=== PATIENT | male | born 1985 | race African-American/Black ===

== ENCOUNTER 2017-07-31 07:06 | Emergency (ER) | payer OTHER ==
[2017-07-31 07:31] VITALS: BP 115/77; PULSE 114; TEMP 98.4; BMI 24.4
--- NOTE | 2017-07-31 07:52 | PDOC ---
History of Present Illness <Gabe Guevara - Last Filed: 07/31/17 09:32> - History of Present Illness Initial Comments: 07/31/17 07:53 32yo man, active smoker, with PMH of asthma (no intubations) and prior R shoulder dislocation who presents with complaints of R shoulder thoracic back pain for the past several months and intermittent sob with mild cough for the past week. He denies any recent trauma to back or shoulders. Denies fever, chills, n/v, chest pain. Denies calf tenderness, chest pain, chest pressure. Patient states he is allergic to Ibuprofen, which causes "everything to go wrong ", and requesting opiate level pain control. No prior surgeries. <Marta Meraz - Last Filed: 07/31/17 09:43> - General Chief Complaint: Back Pain Stated Complaint: BACK PAIN Time Seen by Provider: 07/31/17 07:36 Past History <Gabe Guevara - Last Filed: 07/31/17 09:32> - Travel Traveled outside of the country in the last 30 days: No Close contact w/someone who was outside of country & ill: No - Past Medical History Asthma: Yes COPD: No - Suicide/Smoking/Psychosocial Hx Smoking History: Current some day smoker Have you smoked in the past 12 months: Yes Information on smoking cessation initiated: No Drug/Substance Use Hx: Yes (MARIJUANA) Substance Use Type: Marijuana <Marta Meraz - Last Filed: 07/31/17 09:43> - Past Medical History Allergies/Adverse Reactions: Allergies Allergy/AdvReac Type Severity Reaction Status Date / Time No Known Allergies Allergy Verified 07/31/17 07:28 Home Medications: Ambulatory Orders Tramadol HCl 50 mg PO BID PRN #5 tablet MDD 2 07/31/17 Review of Systems - Review of Systems Respiratory: Yes: Shortness of Breath, Productive cough Musculoskeletal: Yes: Back Pain All Other Systems: Reviewed and Negative <Marta Meraz - Last Filed: 07/31/17 09:43> *Physical Exam - Vital Signs Last Vital Signs Temp Pulse Resp BP Pulse Ox 98.4 F 114 H 15 115/77 99 07/31/17 07:28 07/31/17 07:28 07/31/17 07:28 07/31/17 07:28 07/31/17 07:28 <Gabe Guevara - Last Filed: 07/31/17 09:32> - Vital Signs Last Vital Signs Temp Pulse Resp BP Pulse Ox 98.4 F 114 H 15 115/77 99 07/31/17 07:28 07/31/17 07:28 07/31/17 07:28 07/31/17 07:28 07/31/17 07:28 - Physical Exam General Appearance: Yes: Nourished, Appropriately Dressed HEENT: positive: EOMI, KALEB, Normal ENT Inspection Neck: positive: Supple Respiratory/Chest: positive: Lungs Clear, Normal Breath Sounds. negative: Accessory Muscle Use Cardiovascular: positive: Regular Rhythm, Regular Rate, S1, S2 Musculoskeletal: positive: Normal Inspection, Vertebral Tenderness Extremity: positive: Normal Inspection Integumentary: negative: Ecchymosis, Bruising Neurologic: positive: Fully Oriented, Alert, Motor Strength 5/5, Other ( spontaneous movement of all 4 extremities, gait steady) <Marta Meraz - Last Filed: 07/31/17 09:43> Heart Score/ECG Review - ECG Impressions Normal ECG: Yes Comment:: 07/31/17 08:49 NSR, rate 79, normal axis and intervals (QTc 417), no acute ischemic changes <Marta Meraz - Last Filed: 07/31/17 09:43> ED Treatment Course - Medications Given in the ED: ED Medications Discontinued Medications Generic Name Dose Route Start Last Admin Trade Name Freq PRN Reason Stop Dose Admin Acetaminophen 650 mg 07/31/17 08:03 07/31/17 08:16 Tylenol - PO 07/31/17 08:04 650 mg ONCE ONE Administration <Gabe Guevara - Last Filed: 07/31/17 09:32> Medical Decision Making - Medical Decision Making 07/31/17 08:18 32yo man who is a current smoker, h/o asthma and who presents with acute on chronic R shoulder and thoracic back pain and c/o intermittent sob and cough for the past week. Physical exam is notable for difficult to isolate non-focal tenderness in thoracic region with no bruising or deformities observed. Patient is requesting opiates for pain control. Will r/o PNA, pneumothorax. Likely etiology is MSK. Will do PA/Lateral CXR and EKG. Will give Tylenol for pain, and reassess. 07/31/17 09:25 CXR is reassuring; there is no e/o pneumothorax, focal consolidation, or pleural effusion; no e/o compression fractures are appreciated. EKG is normal. Although triage HR was 114, repeat HR was 79bpm. Patient is satting well on RA, no cough appreciated during ED stay. All vital signs are stable, pt is well appearing, and is stable for discharge home. All imaging and ancillary studies were discussed with the patient. He was instructed to follow-up with Dr. Bullock within 1 week. A prescription for 5 tablets of Tramadol was sent to his pharmacy with instructions to take for severe pain otherwise use Tylenol. Patient is in agreement with plan. <Marta Meraz - Last Filed: 07/31/17 09:43> *DC/Admit/Observation/Transfer <Gabe Guevara - Last Filed: 07/31/17 09:32> - Discharge Dispostion Admit: No <Marta Meraz - Last Filed: 07/31/17 09:43> Diagnosis at time of Disposition: Back pain - Discharge Dispostion Disposition: HOME Condition at time of disposition: Stable - Prescriptions Prescriptions: Tramadol HCl 50 mg PO BID PRN #5 tablet MDD 2 PRN Reason: Pain - Referrals Referrals: Tucker Bullock MD [Staff Physician] - - Patient Instructions Printed Discharge Instructions: DI for Shortness of Breath, DI for Thoracic Back Pain Additional Instructions: Please make an appointment to see Dr. Bullock, a primary care physician within the next 1 week for further evaluation of your back pain and asthma control. Avoid activities that worsen your pain. If you have severe pain, you can take 1 tablet of Tramadol, otherwise use Tylenol for pain control. Please return to the Emergency Department if you have worsening symptoms, including numbness and tingling, fever or chills, vomiting, or new or worsening symptoms. - Post Discharge Activity
[2017-07-31] MEDS ORDERED: ACETAMINOPHEN 325 MG TABLET (FP) PO ONE (08:03)
[2017-07-31] MEDS ORDERED: ACETAMINOPHEN 325 MG TABLET (FP) ONE (08:15)
--- NOTE | 2017-07-31 08:38 | PDOC ---
Attending Attestation - Resident Resident Name: Marta Meraz - ED Attending Attestation I have performed the following: I have examined & evaluated the patient, The case was reviewed & discussed with the resident, I agree w/resident's findings & plan, Exceptions are as noted - HPI HPI: 07/31/17 08:33 32-year-old male with history of asthma, active smoker presents with acute on chronic right thoracic/upper back pain. No history of trauma, no fevers or chills, over the last week has had nasal congestion with slight cough. No PE risk factors, no symptoms of DVT, denies any associated rash or neuro deficits. Has not seen any providers for this in the past, resents today for evaluation. Of note, reports allergy to nsaids and is requesting strong pain medicine. - Physicial Exam PE: 07/31/17 08:36 Vital signs normal, heart rate notably 114 at triage but normal at 84 on my exam. Patient asleep in stretcher lying flat Speaking full sentences, no active cough during the history or physical, in no acute distress Oropharynx clear, lungs are clear without wheezing or focally decreased breath sounds, symmetric chest rise Heart is regular with normal rate and no murmurs Difficult to isolate reproducible discomfort to palpation across the back without any swelling or deformity or bruising No leg edema or calf tenderness - Medical Decision Making 07/31/17 08:36 Patient seen and evaluated with the resident. I agree with the overall evaluation, assessment, and management with the following summary of visit: 32-year-old male with atraumatic acute on chronic (on the order of months) right thoracic discomfort, history of asthma with recent URI. Rule out pneumonia , rule out pneumothorax, otherwise presentation is most consistent with muscular skeletal etiology. Patient's immediate request for opiate level pain medication is concerning, especially since he never had any pain regimen for this in the past. That said, will rule any acute pathology. Chest x-ray, EKG Tylenol for pain No further emergent workup is indicated, can refer to outpatient care if above is within normal limits. Heart Score/ECG Review #1 ECG reviewed & interpreted by me at: 08:20 General ECG Interpretation: Sinus Rhythm, Normal Rate (79), Normal Intervals ( qtc 417), No acute ischemic changes
--- NOTE | 2017-07-31 14:36 | EKG ---
Test Reason : Blood Pressure : / mmHG Vent. Rate : 079 BPM Atrial Rate : 079 BPM P-R Int : 154 ms QRS Dur : 102 ms QT Int : 364 ms P-R-T Axes : 071 081 046 degrees QTc Int : 417 ms NORMAL SINUS RHYTHM WITH SINUS ARRHYTHMIA NORMAL ECG WHEN COMPARED WITH ECG OF 23-OCT-2003 10:04, NO SIGNIFICANT CHANGE WAS FOUND Confirmed by LARRY CRAWFORD MD ([id number]) on 07/31/2017 2:36:16 PM Referred By: Confirmed By:LARRY CRAWFORD MD
== END 2017-07-31 09:53 | disposition home or self-care (01) ==
LOC: JER 07:06
DX: M54.6 Pain in thoracic spine (principal); F17.210 Nicotine dependence, cigarettes, uncomplicated; J45.909 Unspecified asthma, uncomplicated
CPT/HCPCS: 71020-TC; 93005; 93010; 99282-25

== ENCOUNTER 2018-04-11 02:49 | Inpatient (IN) | payer OTHER ==
[2018-04-11] MEDS ORDERED: morphine CARPU-JECT 4 MG/1 ML DISP.SYRIN IVPUSH ONE (03:04)
[2018-04-11] MEDS ORDERED: morphine SULFATE 4 MG/ML VIAL ONE ×2 (03:11→03:27)
[2018-04-11] MEDS ORDERED: morphine CARPU-JECT 2 MG/1 ML DISP.SYRIN IVPUSH ONE (03:25)
[2018-04-11] MEDS ORDERED: PIPERACILLIN/TAZOB 3.375 GM 3.375 GM in DEXTROSE 5%-WATER - 50 ML IVPB ONE (03:26)
[2018-04-11] MEDS ORDERED: VANCOMYCIN 1,000 MG in DEXTROSE 5%-WATER - 250 ML IVPB ONE (03:26)
[2018-04-11] MEDS ORDERED: MORPHINE SULFATE 2 MG/ML VIAL ONE (03:27)
[2018-04-11 03:29] LABS: HEMATOCRIT 42.9 % (35.4-49); HEMOGLOBIN 14.4 GM/dL (11.7-16.9); MCH 29.1 pg (25.7-33.7); MCHC 33.6 g/dl (32.0-35.9); MEAN CELL VOLUME 86.5 fl (80-96); MEAN PLT VOLUME 7.2 fl (7.5-11.1); PLATELET COUNT 312 K/MM3 (134-434); RBC 4.96 M/mm3 (4.00-5.60); WHITE BLOOD COUNT 16.9 K/mm3 (4.0-10.0)
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
[2018-04-11 03:41] LABS: INR 1.12 (0.83-1.09); PROTHROMBIN TIME (PATIENT) 12.7 SEC (9.7-13.0)
[2018-04-11 03:49] LABS: ALBUMIN 3.8 g/dl (3.4-5.0); ALK PHOS 91 U/L (45-117); ANION GAP 6 MMOL/L (8-16); BILIRUBIN,TOTAL 0.3 mg/dL (0.2-1.0); BLOOD UREA NITROGEN 12 mg/dL (7-18); CALCIUM 9.2 mg/dL (8.5-10.1); CHLORIDE 106 mmol/L (98-107); CO2 31 mmol/L (21-32); GLUCOSE,RANDOM 109 mg/dL (74-106); POTASSIUM 4.1 mmol/L (3.5-5.1); SGOT/AST 43 U/L (15-37); SGPT/ALT 37 U/L (12-78); SODIUM 143 mmol/L (136-145); TOT PROT 7.5 g/dl (6.4-8.2)
[2018-04-11] MEDS ORDERED: KETAMINE HCL 200 MG/20 ML VIAL IVPUSH ONE (04:05)
[2018-04-11] MEDS ORDERED: KETAMINE HCL 200 MG/20 ML VIAL ONE (04:11)
[2018-04-11] MEDS ORDERED: LORazepam 2 MG/ML SDV VIAL ONE ×2 (04:22→04:28)
[2018-04-11 04:52] VITALS: BMI 23.4
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
[2018-04-11] MEDS ORDERED: CEFAZOLIN 1 GM in DEXTROSE 5%-WATER - 50 ML IVPB ONE (06:18)
[2018-04-11] MEDS ORDERED: ceFAZolin SODIUM 1 GM VIAL ONE ×2 (06:21→13:24)
--- NOTE | 2018-04-11 07:26 | PDOC ---
History of Present Illness - General Chief Complaint: Bone Injury Stated Complaint: FALL Time Seen by Provider: 04/11/18 03:03 Past History - Past Medical History Allergies/Adverse Reactions: Allergies Allergy/AdvReac Type Severity Reaction Status Date / Time No Known Allergies Allergy Verified 04/11/18 05:34 Home Medications: Ambulatory Orders NK [No Known Home Medication] 04/11/18 Asthma: Yes COPD: No Other medical history: unknown pmhx besides substance abuse - Suicide/Smoking/Psychosocial Hx Smoking History: Current every day smoker Have you smoked in the past 12 months: Yes Number of Cigarettes Smoked Daily: 20 Information on smoking cessation initiated: No Hx Alcohol Use: Yes Drug/Substance Use Hx: Yes Substance Use Type: Marijuana *Physical Exam - Vital Signs Last Vital Signs Temp Pulse Resp BP Pulse Ox 98.5 F 86 18 137/103 100 04/11/18 03:30 04/11/18 04:52 04/11/18 04:18 04/11/18 04:18 04/11/18 04:52 ED Treatment Course - LABORATORY CBC & Chemistry Diagram: 04/11/18 03:19 04/11/18 03:19 - ADDITIONAL ORDERS Additional order review: Laboratory Results 04/11/18 04/11/18 04/11/18 03:19 03:19 03:19 PT with INR 12.70 INR 1.12 H Sodium 143 Potassium 4.1 Chloride 106 Carbon Dioxide 31 Anion Gap 6 L BUN 12 Creatinine 1.0 Creat Clearance w eGFR > 60 Random Glucose 109 H Calcium 9.2 Total Bilirubin 0.3 AST 43 H ALT 37 Alkaline Phosphatase 91 Total Protein 7.5 Albumin 3.8 Salicylates < 4.0 Alcohol, Quantitative < 5.0 04/11/18 03:19 RBC 4.96 MCV 86.5 MCHC 33.6 RDW 15.0 MPV 7.2 L - Medications Given in the ED: ED Medications Discontinued Medications Generic Name Dose Route Start Last Admin Trade Name Freq PRN Reason Stop Dose Admin Vancomycin HCl 1,000 mg/ 250 mls @ 166.667 mls/hr 04/11/18 03:26 04/11/18 03: 35 Dextrose IVPB 04/11/18 04:55 Not Given ONCE ONE Protocol Piperacillin Sod/Tazobactam 50 mls @ 100 mls/hr 04/11/18 03:26 04/11/18 03:36 Sod 3.375 gm/ Dextrose IVPB 04/11/18 03:55 Not Given ONCE ONE Protocol Cefazolin Sodium 1 gm/ 50 mls @ 100 mls/hr 04/11/18 06:18 04/11/18 06:20 Dextrose IVPB 04/11/18 06:47 100 mls/hr ONCE ONE Administration Ketamine HCl 100 mg 04/11/18 04:05 04/11/18 04:55 Ketalar - IVPUSH 04/11/18 04:06 100 mg ONCE ONE Administration Lorazepam 4 mg 04/11/18 04:46 04/11/18 04:55 Ativan Injection - IVPUSH 04/11/18 04:47 4 mg ONCE ONE Administration Lorazepam 2 mg 04/11/18 04:47 04/11/18 04:55 Ativan Injection - IVPUSH 04/11/18 04:48 2 mg ONCE ONE Administration Morphine Sulfate 4 mg 04/11/18 03:04 04/11/18 03:35 Morphine Injection - IVPUSH 04/11/18 03:05 4 mg ONCE ONE Administration Morphine Sulfate 6 mg 04/11/18 03:25 04/11/18 03:34 Morphine Injection - IVPUSH 04/11/18 03:26 6 mg ONCE ONE Administration Medical Decision Making - Medical Decision Making 33 year old who apparently used PCP presented with comminuted distal tib and proximal fib fracture. Patient taken to CT. Responsive but somnolent after copious sedatives (100 Ketamine, Ativan 6, and Morphine). Patient evaluated by PA from ortho team and signed out to Medicine team in stable condition. 04/11/18 09:00 *DC/Admit/Observation/Transfer Diagnosis at time of Disposition: Tibia/fibula fracture - Discharge Dispostion Condition at time of disposition: Guarded - Referrals Referrals: Pierre Boateng MD [Primary Care Provider] - - Patient Instructions - Post Discharge Activity
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
[2018-04-11] MEDS ORDERED: MORPHINE SULFATE 2 MG/ML VIAL IVPUSH PRN (12:39)
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
[2018-04-11] MEDS ORDERED: ROCURONIUM BROMIDE 50 MG/5 ML VIAL ONE (12:57)
[2018-04-11] MEDS ORDERED: PROPOFOL 20 ML ONE (12:57)
[2018-04-11] MEDS ORDERED: fentaNYL CITRATE 250 MCG/5 ML VIAL ONE (12:57)
[2018-04-11] MEDS ORDERED: MIDAZOLAM HCL 2 MG/2 ML SINGLE DOSE VIAL ONE (12:57)
[2018-04-11] MEDS ORDERED: SODIUM CHLORIDE 0.9% P/F 10 ML VIAL IJ ONE (13:24)
[2018-04-11] MEDS ORDERED: ceFAZolin SODIUM 1 GM VIAL IVPB ONE (13:26)
[2018-04-11] MEDS ORDERED: ONDANSETRON 4 MG/2 ML VIAL ONE (13:27)
[2018-04-11] MEDS ORDERED: DEXAMETHASONE SOD PHOSPHATE 4 MG/1 ML VIAL ONE (13:27)
[2018-04-11] MEDS ORDERED: KETOROLAC TROMETHAMINE 30 MG/1 ML VIAL ONE (14:31)
[2018-04-11] MEDS ORDERED: NEOSTIGMINE METHYLSULFATE 0.5 MG/ML - 10 ML MDV ONE (14:33)
[2018-04-11] MEDS ORDERED: GLYCOPYRROLATE 0.2 MG/1 ML VIAL ONE (14:33)
--- NOTE | 2018-04-11 15:06 | CONSULT ---
Consult - text type - Consultation Consultation Note: FULL CONSULT DICTATION IMP: LEFT COMMINUTED TIBIAL/FIBULA SHAFT FX PLAN: ---> OR FOR IM NAIL
--- NOTE | 2018-04-11 15:07 | OP ---
Operative Note - Note: Operative Date: 04/11/18 Pre-Operative Diagnosis: COMMINUTED AND DISPLACE LEFT TIB/FIB SHAFT FX Operation: IM VIRI LEFT TIBIA Post-Operative Diagnosis: Same as Pre-op Anesthesia: General Estimated Blood Loss (mls): 50 Operative Report Dictated: Yes
[2018-04-11] MEDS ORDERED: LACTATED RINGERS SOLUTION 1,000 ML IV SCH (15:15)
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
--- NOTE | 2018-04-11 15:42 | OP ---
DATE OF OPERATION: 04/11/2018 PREOPERATIVE DIAGNOSIS: Comminuted, segmental, left distal tibial shaft fracture with high fibular fracture. POSTOPERATIVE DIAGNOSIS: Comminuted, segmental, left distal tibial shaft fracture with high fibular fracture. PROCEDURE: Intramedullary rodding, left tibial fracture. SURGICAL ATTENDING: Ketan Holland MD ANESTHESIA: General endotracheal intubation. POSITION: Supine. CLOSURE: A Chip tibial intramedullary kevin 11 x 375 mm with appropriate interlocks, 0 Vicryl fascia, 2-0 subcutaneous, and dea for the skin. ESTIMATED BLOOD LOSS: Less than 50 mL. COMPLICATIONS: None. CONDITION: Recovery room in stable condition. DESCRIPTION OF OPERATIVE PROCEDURE: Patient was taken to the operating room on April 11, 2018. General anesthesia with endotracheal intubation was administered by the anesthesiologist. IV Kefzol administered prophylactically prior to the case. The patient's left lower extremity was prepped and draped in the usual sterile fashion. First, a 6-cm longitudinal incision just medial to the patellar tendon was incised. Hemostasis achieved with Bovie cautery. Sharp dissection was carried just medial to the tendon to the origination site for the kevin. A guidewire was drilled from this region into the proximal tibia. Proper placement was confirmed in the AP and lateral planes based on the image intensifier. This was over-reamed with a starter reamer. A ball-tip guidewire was then placed down the intramedullary canal, past the fracture, into the distal fragment. Proper placement was confirmed in the AP and lateral planes based on the image intensifier. The guidewire was measured for length, and then, serial reaming was performed over the wire to a 12.5 reamer, which achieved some chatter at the isthmus. An 11 x 375 mm kevin was then malleted down into place, holding the reduction. The rotation was measured by orienting the first web space with the tibial tubercle. The kevin was placed within a centimeter of the ankle joint. Using the outrigger, 2 proximal interlocks were placed, one dynamic and one static. The outrigger was then removed. Free-hand technique was then used to put 2 distal interlocks, one anterior to posterior and one mediolaterally through the distal 2 holes in the kevin. Excellent fixation was obtained with excellent reduction of the fracture. X-rays revealed excellent position of the hardware throughout, with excellent reduction of the fracture as well. The incisions were cleaned with multiple antibiotic irrigation. The fascia was closed in a 0 Vicryl interrupted suture, 2-0 subcutaneous, and dea for skin, as well as for the stab incisions used to lock the kevin. A sterile pressure dressing was applied lightly to the leg. The patient was awakened from anesthesia and transferred to Recovery in stable condition. No complications. Estimated blood loss was less than 50 mL. Nabil [id number]
[2018-04-11] MEDS ORDERED: oxyCODONE HCL 5 MG TABLET PO ONE ×2 (15:45→18:15)
[2018-04-11] MEDS ORDERED: ACETAMINOPHEN 325 MG TABLET (FP) PO ONE ×2 (15:45→18:15)
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
[2018-04-11] MEDS ORDERED: CEFAZOLIN 1 GM/D5W 1 GM/50 ML BAG IVPB SCH (18:00)
[2018-04-11] MEDS: LACTATED RINGERS SOLUTION 1,000 ML IV SCH (18:17)
[2018-04-11] MEDS ORDERED: LORazepam 2 MG/ML SDV VIAL IVPUSH PRN (18:25)
[2018-04-12] MEDS ORDERED: ceFAZolin SODIUM 1 GM VIAL ONE ×2 (01:03→09:20)
[2018-04-12] MEDS ORDERED: DEXTROSE 5%-WATER - 50 ML IVPB ONE ×2 (01:03→09:20)
[2018-04-12] MEDS: morphine SULFATE 4 MG/ML VIAL IVPUSH PRN ×3 (01:25→09:37)
[2018-04-12] MEDS: CEFAZOLIN 1 GM in DEXTROSE 5%-WATER - 50 ML IVPB SCH ×2 (01:26→09:37)
[2018-04-12] MEDS: LACTATED RINGERS SOLUTION 1,000 ML IV SCH (05:38)
[2018-04-12 08:31] LABS: HEMATOCRIT 36.3 % (35.4-49); HEMOGLOBIN 11.8 GM/dL (11.7-16.9); MCHC 32.5 g/dl (32.0-35.9); MEAN CELL VOLUME 86.3 fl (80-96); MEAN PLT VOLUME 7.3 fl (7.5-11.1); PLATELET COUNT 262 K/MM3 (134-434); RBC 4.21 M/mm3 (4.00-5.60); RDW 14.8 % (11.9-15.9); WHITE BLOOD COUNT 14.2 K/mm3 (4.0-10.0)
--- NOTE | 2018-04-12 08:40 | PN ---
Progress Note (short form) - Note Progress Note: Post op day#1.S/P Left tibial kevin placement under Ga uneventful.Patient stable.No any anesthesia related problem.Patient Dc from the anesthesia care.
[2018-04-12 09:03] LABS: ANION GAP 9 MMOL/L (8-16); BLOOD UREA NITROGEN 12 mg/dL (7-18); CALCIUM 8.6 mg/dL (8.5-10.1); CHLORIDE 102 mmol/L (98-107); CO2 28 mmol/L (21-32); CREATININE 0.7 mg/dL (0.7-1.3); GLUCOSE,RANDOM 94 mg/dL (74-106); POTASSIUM 4.2 mmol/L (3.5-5.1); SODIUM 139 mmol/L (136-145)
--- NOTE | 2018-04-12 11:44 | PN ---
Progress Note (short form) - Note Progress Note: Ortho Pt seen and examined s/p left tibal IM kevin pod #1 Selected Entries 04/12/18 08:26 Temperature 98.7 F Pulse Rate 99 H Respiratory 20 Rate Blood Pressure 138/94 Laboratory Tests 04/12/18 07:15 WBC 14.2 H Hgb 11.8 Hct 36.3 D Plt Count 262 dressing c/d/i, nvi a/p ok to d/c home today TTWB with crutches pain control f/u in the office in 1-2 weeks
[2018-04-12] MEDS ORDERED: LORazepam 1 MG TABLET PO PRN (11:48)
[2018-04-12] MEDS ORDERED: morphine CARPU-JECT 4 MG/1 ML DISP.SYRIN IVPUSH SCH (12:30)
[2018-04-12] MEDS ORDERED: morphine CARPU-JECT 4 MG/1 ML DISP.SYRIN IVPUSH PRN (14:08)
[2018-04-12] MEDS: oxyCODONE HCL 5 MG TABLET PO PRN ×2 (14:30→19:35)
[2018-04-12] MEDS: HEPARIN NA (PORCINE) 5,000 UNITS/ML 1ML VIAL SQ SCH ×2 (14:30→21:46)
[2018-04-12] MEDS ORDERED: ALBUTEROL SO4 8 GM HFA INHALER IH PRN (16:52)
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
[2018-04-12] MEDS ORDERED: MORPHINE SULFATE 2 MG/ML VIAL IVPUSH PRN (17:56)
--- NOTE | 2018-04-12 18:04 | PN ---
Teaching Attending Note Name of Resident: Zina Jean ATTENDING PHYSICIAN STATEMENT I saw and evaluated the patient. I reviewed the resident's note and discussed the case with the resident. I agree with the resident's findings and plan as documented. SUBJECTIVE: No fever or chills . cont to be in pain. has no OSB or CP. this am , he threatened to leave AMA and was spoken to by Dr. Jean OBJECTIVE: NAd CV: RRR Lungs: CTAB Abd: Soft, NT, ND , NL BS Ext: L leg in a cast, with DP 2+ bilaterally. 1+ edema on L foot. nl sensation to light touch on L foot, cam algorithm developer toes. A/P : 33 y/o man with h/o Asthma, and substance abuse, who presented with L leg pain after a fall. he was found to have a L fib/tib Fx. 1- L Tib/Fib Fx: s/p IM in tibia. - able to walk, TTWB as tolerated. - decrease morphine to 2 mg q 6 hr and add oxycodone - dc IVF 2- Asthma : inhaler as needed 3- dc home tomorow due to continued need for IV pain meds today
[2018-04-12] MEDS: ACETAMINOPHEN 325 MG TABLET (FP) PO PRN (22:13)
[2018-04-13] MEDS: HEPARIN NA (PORCINE) 5,000 UNITS/ML 1ML VIAL SQ SCH ×3 (06:49→21:10)
[2018-04-13] MEDS: oxyCODONE HCL 5 MG TABLET PO PRN ×4 (06:54→19:48)
[2018-04-13 08:33] LABS: HEMATOCRIT 36.1 % (35.4-49); HEMOGLOBIN 11.9 GM/dL (11.7-16.9); MCH 28.4 pg (25.7-33.7); MCHC 32.9 g/dl (32.0-35.9); MEAN CELL VOLUME 86.3 fl (80-96); MEAN PLT VOLUME 7.1 fl (7.5-11.1); PLATELET COUNT 249 K/MM3 (134-434); RBC 4.18 M/mm3 (4.00-5.60); RDW 14.5 % (11.9-15.9); WHITE BLOOD COUNT 12.5 K/mm3 (4.0-10.0)
[2018-04-13] MEDS: ACETAMINOPHEN 325 MG TABLET (FP) PO PRN ×3 (10:48→19:48)
--- NOTE | 2018-04-13 12:28 | PN ---
Progress Note (short form) - Note Progress Note: Pt seen and examined. He is on POD #2 s/p Left Tibia IM nail. Doing well. Min c/ o pain. He did ok with PT this morning. PE Dressing CDI LLE grossly NVI: good ROM at the left ankle, foot, toes Some ROM at the left knee, but limited secondary to pain. Imp Doing well. Progressing slowly with PT Rec P.T., PWB LLE with crutches Upon DC f/u in office as an out pt in 7-14 days
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
--- NOTE | 2018-04-13 17:04 | PN ---
Teaching Attending Note Name of Resident: Zina Jean ATTENDING PHYSICIAN STATEMENT I saw and evaluated the patient. I reviewed the resident's note and discussed the case with the resident. I agree with the resident's findings and plan as documented. SUBJECTIVE: no fever or chills. cont to have pain OBJECTIVE: NAd CV: RRR Lungs: CTAB Abd: Soft, NT, ND , NL BS Ext: L leg in a cast, with DP 2+ bilaterally. 1+ edema on L foot. nl sensation to light touch on L foot, cam bung remover toes. A/P : 33 y/o man with h/o Asthma, and substance abuse, who presented with L leg pain after a fall. he was found to have a L fib/tib Fx. 1- L Tib/Fib Fx: s/p IM in tibia. - TTWB as tolerated. was not trained to use crutches by PT today -dc morphine , cont oxy PT 2- Asthma : inhaler as needed 3- will dc home when SW can arrange for a penitentiary as homeless. was not trained to use crutches. repeat PT otmorrow . dc tomorrow
[2018-04-14] MEDS: oxyCODONE HCL 5 MG TABLET PO PRN ×3 (03:22→12:31)
[2018-04-14] MEDS: ACETAMINOPHEN 325 MG TABLET (FP) PO PRN (03:26)
[2018-04-14] MEDS: HEPARIN NA (PORCINE) 5,000 UNITS/ML 1ML VIAL SQ SCH ×2 (06:26→14:15)
[2018-04-14 08:27] VITALS: BP 128/71; PULSE 83; TEMP 97.8
[2018-04-14 09:28] LABS: BASO % 0.9 % (0-2.0); EOS % 1.3 % (0-4.5); HEMATOCRIT 36.1 % (35.4-49); HEMOGLOBIN 11.9 GM/dL (11.7-16.9); LYMPH % 17.6 % (8-40); MCH 28.4 pg (25.7-33.7); MCHC 32.9 g/dl (32.0-35.9); MEAN CELL VOLUME 86.3 fl (80-96); MEAN PLT VOLUME 7.3 fl (7.5-11.1); MONO % 9.3 % (3.8-10.2); NEUT % 70.9 % (42.8-82.8); PLATELET COUNT 272 K/MM3 (134-434); RBC 4.18 M/mm3 (4.00-5.60); RDW 14.6 % (11.9-15.9); WHITE BLOOD COUNT 10.3 K/mm3 (4.0-10.0)
--- NOTE | 2018-04-14 16:02 | DS ---
Physical Examination Vital Signs: Vital Signs Temperature 97.8 F 04/14/18 08:00 Pulse Rate 83 04/14/18 08:00 Respiratory Rate 15 04/14/18 08:00 Blood Pressure 128/71 04/14/18 08:00 O2 Sat by Pulse Oximetry (%) 100 04/14/18 09:00 Findings/Remarks: pain in LLE has improved . walked today with crutches No fever or chills. No OSB . feels better PE: NAd CV: RRR Lungs: CTAB Ext: L leg in a cast, with DP 2+ bilaterally. 1+ edema on L foot. nl sensation to light touch on L foot, can elastic attacher overlock toes. Labs: CBC, BMP 04/14/18 09:03 04/12/18 07:15 Discharge Summary Reason For Visit: FRACTURE OF TIBIA Hospital Course: 33 y/o man with h/o Asthma, and substance abuse, who presented with L leg pain after a fall. upon admisison he was found to be intoxicated with PCP , and was agitated and aggresive and has to be given Benzos. xray showed L fib/tib Fx. He was seen by ortho and IM nail of tibia was done. he did well after sx and was ambulatory next day of procedure. he was trained how to use crutches and is to perform TTWB as per ortho's Recs. he did well after sx and will be d/c on ibuprofen for pain in a trial to avoid narcotics given his h/o substance abuse. His fundraising officer was notified at time of discharge, and will work on getting him to [facility] rehab in 2 days after dc . No need fo rDVT PX after dc as ambulatory Dispo : DC . will live with his girlfriend. condition: improved . time spent 30 min - f/u with and PCP at [facility] Condition: Improved - Instructions Diet, Activity, Other Instructions: - You were admitted to the hospital because of a fracture in your left leg. You underwent surgery for your fracture and were monitored in the hospital. You are being discharged today. - walk with crutches all the time, and put partial pressure on the toes of your left foot - take ibuprofen every 8 hours with food and alternate with tylenol . a prescription was sent to your pharmacy. - do not exceed 3.5 grams of tylenol a day - if you need more pain medications please contact the surgeon . - follow with doctor Holland in 1 week - follow with your PCP in [facility] Referrals: Ketan Holland MD [Staff Physician] - 1 Week Disposition: HOME - Home Medications Comprehensive Discharge Medication List: Ambulatory Orders Acetaminophen [Tylenol] 650 mg PO Q6H #1 capsule 04/14/18 Ibuprofen [Ibu] 600 mg PO Q8H #21 tablet 04/14/18 This patient is new to me today: No Emergency Visit: Yes ED Registration Date: 04/11/18 Care time: The patient presented to the Emergency Department on the above date and was hospitalized for further evaluation of their emergent condition. Critical Care patient: No - Discharge Referral Referred to [facility] Med P.C[facility] No
== END 2018-04-14 15:45 | disposition home or self-care (01) | DRG 313 ==
LOC: JER 02:49 → JERBED 07:09 → J6S 16:55
PROVIDERS: ADMIT Internal Medicine; ATTEND Internal Medicine
PROC: 0QHH04Z Insertion of Internal Fixation Device into Left Tibia, Open Approach (ICD-10-PCS; principal; 2018-04-11 13:00)
DX: S82.252A Displaced comminuted fracture of shaft of left tibia, initial encounter for closed fracture (principal); Y04.8XXA Assault by other bodily force, initial encounter; Y93.89 Activity, other specified; Y92.89 Other specified places as the place of occurrence of the external cause; Y99.8 Other external cause status; J45.909 Unspecified asthma, uncomplicated; F17.210 Nicotine dependence, cigarettes, uncomplicated; F12.10 Cannabis abuse, uncomplicated; F16.120 Hallucinogen abuse with intoxication, uncomplicated; F91.9 Conduct disorder, unspecified
CPT/HCPCS: 36415; 70450-TC; 71045-TC-FY; 72125-TC; 73562-TC-LT-FY; 73590-TC-LT-FY; 73610-TC-LT-FY; 73630-TC-LT; 76000-TC-FY; 80048; 80053; 80307; 85025; 85027; 85610; 94760; 97116-GP; 97161-GP; 99285-25; J1644

== ENCOUNTER 2018-06-12 05:12 | Day surgery (SDC) | payer OTHER ==
[2018-06-11 16:11] VITALS: BMI 24.4
[2018-06-12] MEDS ORDERED: HEPARIN NA (PORCINE) 5,000 UNITS/ML 1ML VIAL ONE (08:12)
--- NOTE | 2018-06-12 08:28 | HP ---
Satellite [facility] - Chief Complaint Chief Complaint: pain left leg History Source: Patient Limitations to Obtaining History: No Limitations - Past Medical History Allergies/Adverse Reactions: Allergies Allergy/AdvReac Type Severity Reaction Status Date / Time No Known Allergies Allergy Verified 04/11/18 05:34 - Current Medications Current Medications: Home Medications Medication Instructions Recorded Acetaminophen [Tylenol] 650 mg PO Q6H #1 capsule 04/14/18 Ibuprofen [Ibu] 600 mg PO Q8H #21 tablet 04/14/18 Satellite Physical Exam - Physical Examination Vital Signs: Vital Signs Period Temp Pulse Resp BP Sys/Mackenzie Pulse Ox Last 24 Hr 98.2 F 88 18 124/75 99 Extremities: Other (+ mild tenderness at fx site distal tibia region, well healed surgical scars) Satellite Impression/Plan - Impression/Plan Impression: delayed union left tibia fracture Operative Procedure: iliac crest aspiration, dynamazation of tibial kevin, open bone grafting of left tibia fracture site Date to be Performed: 06/12/18
[2018-06-12] MEDS ORDERED: ceFAZolin SODIUM 1 GM VIAL IVPB ONE (08:44)
--- NOTE | 2018-06-12 10:00 | OP ---
Operative Note - Note: Operative Date: 06/12/18 Pre-Operative Diagnosis: delayed union left tibial shaft fracture Operation: iliac crest aspiration, kevin dynamazation, open bone graft of left tibial shaft fracture Post-Operative Diagnosis: Same as Pre-op Surgeon: Ketan Holland Anesthesia: Spinal Estimated Blood Loss (mls): 60 Operative Report Dictated: Yes
[2018-06-12] MEDS ORDERED: oxyCODONE HCL 5 MG TABLET PO PRN (10:12)
[2018-06-12] MEDS ORDERED: LACTATED RINGERS SOLUTION 1,000 ML IV SCH (10:15)
--- NOTE | 2018-06-12 11:27 | OP ---
DATE OF OPERATION: 06/12/2018 PREOPERATIVE DIAGNOSIS: Delayed union, left segmental tibial shaft fracture. POSTOPERATIVE DIAGNOSIS: Delayed union, left segmental tibial shaft fracture. PROCEDURES: 1. Left iliac crest aspiration and centrifuge of material. 2. Dynamization, left tibial kevin. 3. Open bone grafting of fracture site, left tibia. SURGICAL ATTENDING: Ketan Holland MD ANESTHESIA: Spinal and regional. CLOSURE: Nylon 3-0. COMPLICATIONS: None. CONDITION: Recovery room in stable condition. DESCRIPTION OF OPERATIVE PROCEDURE: The patient was taken to the operating room on June 12, 2018. Spinal anesthesia was administered by the anesthesiologist. prior to the case. First, the left iliac crest was prepped and draped. A core needle was placed through the two tables of the crest, and through multiple sites, 60 mL of bloody tissue from in between the two tables was harvested. The needle was removed, and pressure was applied, and then a Band-Aid was applied. The fluid was passed off the field to a sterile container which was centrifuged to isolate out the potential cells to be used in the bone grafting portion of the procedure. Next, the left tibial area was prepped and draped in the usual sterile fashion. Using fluoroscopic guidance, the static V-Loc screw in the proximal tibia was isolated. A small stab incision was made over the screw and then the screw was removed. Fluoroscopy confirmed the removal of the screw. Next, our attention was directed to the fracture. There was one area in particular on the medial side of a butterfly fragment that was not healing especially. This area was isolated using fluoroscopy. A 3-cm incision over the anterolateral aspect at the level of the fracture was incised. Hemostasis achieved with Bovie cautery. Blunt dissection was done subperiosteal down to the level of the fracture. Curettes were used to clean up any primitive healing attempted at the fracture site. This area was then filled with 30 mL of cancellous chips that were mixed together with the iliac crest bone aspirate-centrifuge material and was packed into this area. The skin was then closed over using 3-0 nylon mattress sutures. Fluoroscopy revealed excellent filling of the void of this region. A sterile pressure dressing was applied. The patient was awakened from anesthesia and transferred to the recovery room in stable condition. No complications. Estimated blood loss negligible. Nabil [id number]
[2018-06-12 12:47] VITALS: BP 121/66; PULSE 66; TEMP 97.7
--- NOTE | 2018-06-13 10:03 | PATH ---
Surgical Pathology Report Patient Name: MARISOL RICE Med. Rec. #: [id number] /Age/Gender: 1985 (Age: 33) / M Account: [id number] Location: [facility] SURGICAL Taken: 06/12/2018 Received: 06/12/2018 Reported: 06/13/2018 Physicians: Ketan Holland M.D. Specimen(s) Received SCREW REMOVED LEFT LEG Clinical History Delayed union left tibial shaft fracture Final Diagnosis LEG, LEFT, SCREW, REMOVAL: SURGICAL HARDWARE. MACROSCOPIC DIAGNOSIS. Electronically Signed Chuyita Hussein M.D. Gross Description Received fresh labeled "screw left leg," is a 4.3 cm in length kyle metallic screw. No soft tissue is present. No sections are submitted, gross only. 06/12/201806/12/2018
== END 2018-06-12 13:05 | disposition home or self-care (01) ==
LOC: JASU-SURG 05:12
PROVIDERS: ATTEND Orthopaedic Surgery
PROC: 0QUH07Z Supplement Left Tibia with Autologous Tissue Substitute, Open Approach (ICD-10-PCS; 2018-06-12)
PROC: 0QB30ZZ Excision of Left Pelvic Bone, Open Approach (ICD-10-PCS; 2018-06-12)
PROC: 07JT3ZZ Inspection of Bone Marrow, Percutaneous Approach (ICD-10-PCS; 2018-06-12)
PROC: 0QPH04Z Removal of Internal Fixation Device from Left Tibia, Open Approach (ICD-10-PCS; principal; 2018-06-12 08:00)
DX: S82.262 Displaced segmental fracture of shaft of left tibia (principal); X58.XXXD Exposure to other specified factors, subsequent encounter
CPT/HCPCS: 76000-TC-FY; 88300-TC; 94760; J1644

== ENCOUNTER 2018-09-18 21:54 | Emergency (ER) | payer OTHER ==
[2018-09-18 22:01] VITALS: BP 115/76; PULSE 102; TEMP 98.3; BMI 23.7
[2018-09-18] MEDS ORDERED: ACETAMINOPHEN 500 MG TABLET (FP) PO ONE (22:23)
[2018-09-18] MEDS ORDERED: ACETAMINOPHEN 500 MG TABLET (FP) ONE (22:26)
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
[2018-09-18 22:45] LABS: BASO % 0.6 % (0-2.0); EOS % 0.4 % (0-4.5); HEMATOCRIT 42.4 % (35.4-49); HEMOGLOBIN 14.5 GM/dL (11.7-16.9); LYMPH % 11.3 % (8-40); MCH 28.5 pg (25.7-33.7); MCHC 34.1 g/dl (32.0-35.9); MEAN CELL VOLUME 83.5 fl (80-96); MEAN PLT VOLUME 6.4 fl (7.5-11.1); MONO % 5.2 % (3.8-10.2); NEUT % 82.5 % (42.8-82.8); PLATELET COUNT 379 K/MM3 (134-434); RBC 5.08 M/mm3 (4.00-5.60); RDW 15.3 % (11.9-15.9); WHITE BLOOD COUNT 20.1 K/mm3 (4.0-10.0)
[2018-09-18] MEDS ORDERED: SODIUM CHLORIDE 0.9% 1000 ML INFUS.BAG IV ONE (23:04)
[2018-09-18 23:09] LABS: PLATELET ESTIMATE INCREASED
[2018-09-18 23:18] LABS: ALBUMIN 4.3 g/dl (3.4-5.0); ALK PHOS 166 U/L (45-117); ANION GAP 6 MMOL/L (8-16); BILIRUBIN,TOTAL 0.7 mg/dL (0.2-1); BLOOD UREA NITROGEN 13 mg/dL (7-18); CALCIUM 9.5 mg/dL (8.5-10.1); CHLORIDE 107 mmol/L (98-107); CO2 27 mmol/L (21-32); CREATININE 0.9 mg/dL (0.55-1.3); GLUCOSE,RANDOM 74 mg/dL (74-106); POTASSIUM 3.8 mmol/L (3.5-5.1); SGOT/AST 90 U/L (15-37); SGPT/ALT 42 U/L (13-61); SODIUM 140 mmol/L (136-145); TOT PROT 8.1 g/dl (6.4-8.2)
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
[2018-09-19] MEDS ORDERED: KETOROLAC TROMETHAMINE 60 MG/2 ML VIAL IM ONE (00:38)
[2018-09-19 00:43] LABS: URINE APPEARANCE CLEAR; URINE BILIRUBIN NEGATIVE (<2.0 mg/dL); URINE COLOR YELLOW; URINE GLUCOSE (UA) NEGATIVE (NEGATIVE); URINE KETONE 1+ (NEGATIVE); URINE LEUK ESTERASE NEGATIVE (NEGATIVE); URINE NITRITE NEGATIVE (NEGATIVE); URINE PROTEIN 1+ (NEGATIVE); URINE UROBILINOGEN 4.0 E.U/dl mg/dL (0.2-1.0)
[2018-09-19] MEDS ORDERED: KETOROLAC TROMETHAMINE 30 MG/1 ML VIAL IVPUSH ONE (00:45)
[2018-09-19] MEDS ORDERED: KETOROLAC TROMETHAMINE 30 MG/1 ML VIAL ONE (00:47)
[2018-09-19 00:49] LABS: URINE BACTERIA FEW /hpf (NONE SEEN); URINE HYALINE CAST 4 /lpf; URINE MUCUS MANY
[2018-09-19 01:04] LABS: BASO % 0.5 % (0-2.0); EOS % 0.6 % (0-4.5); HEMOGLOBIN 13.7 GM/dL (11.7-16.9); LYMPH % 12.8 % (8-40); MCH 27.9 pg (25.7-33.7); MCHC 33.3 g/dl (32.0-35.9); MEAN CELL VOLUME 83.9 fl (80-96); MEAN PLT VOLUME 6.4 fl (7.5-11.1); MONO % 6.5 % (3.8-10.2); NEUT % 79.6 % (42.8-82.8); PLATELET COUNT 344 K/MM3 (134-434); RBC 4.89 M/mm3 (4.00-5.60); RDW 15.6 % (11.9-15.9); WHITE BLOOD COUNT 19.7 K/mm3 (4.0-10.0)
[2018-09-19 01:29] LABS: COCAINE, UR NEGATIVE ng/ml (CUTOFF=300); OPIATES, URI NEGATIVE ng/ml (CUTOFF=300); URINE AMPHETAMINES NEGATIVE ng/ml (CUTOFF=500); URINE BARBITURATES NEGATIVE ng/ml (CUTOFF=200); URINE BENZODIAZEPINES NEGATIVE ng/ml (CUTOFF=200)
[2018-09-19 01:32] LABS: PHENCYCLIDINE,URINE POSITIVE ng/ml (CUTOFF=25)
[2018-09-19 05:34] LABS: METHADONE, UR NEGATIVE ng/ml (CUTOFF=300)
== END 2018-09-19 02:40 | disposition home or self-care (01) ==
LOC: JER 21:54
PROC: 3E0333Z Introduction of Anti-inflammatory into Peripheral Vein, Percutaneous Approach (ICD-10-PCS; principal; 2018-09-18)
PROC: 3E0337Z Introduction of Electrolytic and Water Balance Substance into Peripheral Vein, Percutaneous Approach (ICD-10-PCS; 2018-09-18)
DX: Z04.71 Encounter for examination and observation following alleged adult physical abuse (principal)
CPT/HCPCS: 36415; 70450-TC; 71260-TC; 73590-TC-LT-FY; 74177-TC; 80053; 80307; 81003; 81015; 85025; 87086; 99284-25; J7030

== ENCOUNTER 2020-04-21 12:40 | Emergency (ER) | payer OTHER ==
[2020-04-21 12:51] VITALS: BP 146/68; PULSE 99; TEMP 99; BMI 26.4
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
[2020-04-21 15:06] LABS: PH,URINE 5.5 (5.0-8.0); URINE APPEARANCE CLEAR; URINE BILIRUBIN NEGATIVE (NEGATIVE); URINE COLOR YELLOW; URINE GLUCOSE (UA) NEGATIVE (NEGATIVE); URINE KETONE NEGATIVE (NEGATIVE); URINE LEUK ESTERASE NEGATIVE (NEGATIVE); URINE NITRITE NEGATIVE (NEGATIVE); URINE PROTEIN NEGATIVE (NEGATIVE)
[2020-04-21 15:08] LABS: BASO % 0.4 % (0-2.0); EOS % 0.6 % (0-4.5); HEMATOCRIT 45.3 % (35.4-49); HEMOGLOBIN 14.7 GM/dL (11.7-16.9); LYMPH % 13.3 % (8-40); MCH 28.3 pg (25.7-33.7); MCHC 32.5 g/dl (32.0-35.9); MEAN CELL VOLUME 87.3 fl (80-96); MEAN PLT VOLUME 7.5 fl (7.5-11.1); MONO % 6.8 % (3.8-10.2); NEUT % 78.9 % (42.8-82.8); PLATELET COUNT 292 K/MM3 (134-434); RBC 5.19 M/mm3 (4.00-5.60); WHITE BLOOD COUNT 11.6 K/mm3 (4.0-10.0)
[2020-04-21] MEDS ORDERED: ACETAMINOPHEN 500 MG TABLET (FP) PO ONE (15:25)
[2020-04-21 15:33] LABS: ALBUMIN 3.7 g/dl (3.4-5.0); BILIRUBIN,TOTAL 0.4 mg/dL (0.2-1); BLOOD UREA NITROGEN 8.5 mg/dL (7-18); CALCIUM 9.4 mg/dL (8.5-10.1); CREATININE 0.8 mg/dL (0.55-1.3); POTASSIUM 4.3 mmol/L (3.5-5.1); TOT PROT 6.8 g/dl (6.4-8.2)
[2020-04-21] MEDS ORDERED: PENICILLIN G BENZATHINE 2,400,000 UNIT/4 ML PFS IM ONE (16:13)
[2020-04-21] MEDS ORDERED: PENICILLIN G BENZATHINE 2,400,000 UNIT/4 ML PFS ONE (16:42)
[2020-04-21] MEDS ORDERED: ACETAMINOPHEN 325 MG TABLET (FP) ONE (16:43)
== END 2020-04-21 16:53 | disposition home or self-care (01) ==
LOC: JER 12:40
DX: M79.10 Myalgia, unspecified site (principal)
CPT/HCPCS: 36415; 70450-TC; 72125-TC; 73030-TC-LT-FY; 73130-TC-LT-FY; 73630-TC-RT-FY; 80053; 81003; 85025; 86593; 86780; 87389; 87491; 87591; 99285-25

== ENCOUNTER 2020-06-02 11:36 | Emergency (ER) | payer OTHER ==
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
[2020-06-02 12:01] VITALS: BP 136/80; PULSE 117; TEMP 98.6; BMI 25.7
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
[2020-06-02] MEDS ORDERED: AZITHROMYCIN 250 MG TABLET PO ONE (12:56)
[2020-06-02] MEDS ORDERED: AZITHROMYCIN 250 MG TABLET ONE (13:03)
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
[2020-06-02 13:25] LABS: URINE APPEARANCE CLOUDY; URINE BILIRUBIN NEGATIVE (NEGATIVE); URINE COLOR YELLOW; URINE GLUCOSE (UA) NEGATIVE (NEGATIVE); URINE KETONE 1+ (NEGATIVE); URINE LEUK ESTERASE NEGATIVE (NEGATIVE); URINE NITRITE NEGATIVE (NEGATIVE); URINE PROTEIN TRACE (NEGATIVE)
== END 2020-06-02 13:16 | disposition home or self-care (01) ==
LOC: JERFT 11:36
DX: Z20.2 Contact with and (suspected) exposure to infections with a predominantly sexual mode of transmission (principal)
CPT/HCPCS: 36415; 81003; 86593; 86780; 87086; 87389; 87491; 87591; 99284-25

== ENCOUNTER 2020-06-03 14:40 | Emergency (ER) | payer OTHER ==
[2020-06-03 14:47] VITALS: BP 100/55; PULSE 110; TEMP 98.3; BMI 25.7
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
[2020-06-03] MEDS ORDERED: PENICILLIN G BENZATHINE 2,400,000 UNIT/4 ML PFS IM ONE (15:42)
[2020-06-03] MEDS ORDERED: PENICILLIN G BENZATHINE 1,200,000 UNIT/2 ML PFS IM ONE (15:49)
--- NOTE | 2020-06-03 15:55 | PDOC ---
History of Present Illness - General Chief Complaint: Penile Drainage Stated Complaint: SICK Time Seen by Provider: 06/03/20 14:54 History Source: Patient, Old Records Exam Limitations: No Limitations - History of Present Illness Travel History: No Initial Comments: 06/03/20 16:12 HISTORY OF PRESENT ILLNESS: 35-year-old male returns to the emergency department after call back for positive RPR. Patient reports continuing symptoms with penile drainage. Patient endorses he had recent exposure to unknown STI. Patient's RPR was noted to be positive here with a ratio of 1:1. HIV testing was negative. GC is pending at this time. No recent travel or sick contacts. PAST MEDICAL HISTORY: Denies past medical history SURGICAL HISTORY: Denies ALLERGIES: No known drug allergies REVIEW OF SYSTEMS General/Constitutional: Denies fever or chills. Denies weakness, weight change. HEENT: Denies change in vision. Denies ear pain or discharge. Denies sore throat. Cardiovascular: Denies chest pain or shortness of breath. Respiratory: Denies cough, wheezing, or hemoptysis. Gastrointestinal: Denies nausea, vomiting, diarrhea or constipation. Denies rectal bleeding. Genitourinary: Denies dysuria, frequency, or change in urination. Musculoskeletal: Denies joint or muscle swelling or pain. Denies neck or back pain. Skin and breasts: Denies rash or easy bruising. Neurologic: Denies headache, vertigo, loss of consciousness, or loss of sensation. Psychiatric: Denies depression or anxiety. Endocrine: Denies increased thirst. Denies abnormal weight change. Hematologic/Lymphatic: Denies anemia, easy bleeding, or history of blood clots. Allergic/Immunologic: Denies hives or skin allergy. Denies latex allergy. PHYSICAL EXAM General Appearance: Well-appearing, appropriately dressed. No apparent distress, no intoxication. Gastrointestinal/Abdominal: Normal bowel sounds. Abdomen soft, non-distended. No tenderness or rebound tenderness. No organomegaly, pulsatile mass, guarding, hernia, hepatomegaly, splenomegaly. Genitals: Mucopurulent discharge present from urinary meatus. Circumcised penis. Normal testicular exam. Lymphatic: No adenopathy, tenderness. Past History - Medical History Allergies/Adverse Reactions: Allergies Allergy/AdvReac Type Severity Reaction Status Date / Time No Known Allergies Allergy Verified 06/03/20 14:43 Home Medications: Ambulatory Orders Acetaminophen [Tylenol] 650 mg PO Q6H #1 capsule 04/14/18 Ibuprofen [Ibu] 600 mg PO Q8H #21 tablet 04/14/18 Oxycodone HCl/Acetaminophen [Percocet 5-325 mg Tablet -] 1 - 2 tab PO Q6H #60 tab MDD 6 06/12/18 Ketorolac Tromethamine [Toradol -] 10 mg PO Q6H PRN #28 tablet 09/19/18 Cephalexin [Keflex] 500 mg PO TID #30 capsule 11/20/19 Sulfamethoxazole/Trimethoprim [Bactrim Ds -] 1 tab PO BID #20 tablet 11/20/19 Ibuprofen [Ibu] 600 mg PO TID 7 Days #21 tablet 04/21/20 Asthma: Yes COPD: No - Surgical History Orthopedic Surgery: Yes (LEFT LEG SX) - Psycho-Social/Smoking History Smoking History: Current every day smoker Have you smoked in the past 12 months: No Number of Cigarettes Smoked Daily: 10 Information on smoking cessation initiated: No 'Breaking Loose' booklet given: 04/11/18 - Substance Abuse Hx (Audit-C & DAST Scrn) How often the patient has a drink containing alcohol: Never Score: In Men: 4 or > Positive; In Women: 3 or > Positive: 0 Screen Result (Pos requires Nsg. Audit-10AR): Negative In the last yr the pt used illegal drug/Rx for NonMed reason: Yes Score: Yes response is considered Positive: 1 Screen Result (Positive result requires Nsg. 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 Bicillin 2,400,000 units IM now Discharge home with ID follow-up I discussed the physical exam findings, ancillary test results and final diagnoses with the patient. I answered all of the patient's questions. The patient was satisfied with the care received and felt comfortable with the di hai plan and treatment plan. The patient will call their primary care physician within 24 hours to arrange follow-up and will return to the Emergency Department with any new, persistent or worsening symptoms. Portions of this note have been documented using voice recognition software. As a result, errors may occur in the religion professor process. Effort has been made to correct all grammatical and religion professor error, but some may have been missed which may produce sporadic inaccurate religion professor or nonsensical phrases. Discharge - Discharge Information Problems reviewed: Yes Clinical Impression/Diagnosis: Syphilis in male Condition: Stable Disposition: HOME - Admission No - Follow up/Referral Referrals: Cici Nelson [Primary Care Provider] - Aldair Nicholson MD [Staff Physician] - - Patient Discharge Instructions Additional Instructions: You were tested for syphilis, HIV and gonorrhea chlamydia yesterday. Your HIV test is negative. Your syphilis testing shows were positive but it is likely an old illness. As you have not been previously tested or treated, I give you the first dose today but you need 2 more doses to have full treatment. Your next dose is due in 7 days 06/10 and the final dose is due 7 days after that which is 06/17. You have been given a referral for an infectious disease specialist for repeat t reatment. Return to the emergency department for any new or worsening symptoms. Thank you very much for choosing us to provide your emergent health care needs. - Post Discharge Activity
== END 2020-06-03 16:03 | disposition home or self-care (01) ==
LOC: JERFT 14:40
DX: A51.0 Primary genital syphilis (principal)
CPT/HCPCS: 99284-25

== ENCOUNTER 2020-06-23 17:22 | Emergency (ER) | payer OTHER ==
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
[2020-06-23 17:32] VITALS: BP 143/92; PULSE 103; TEMP 98.4; BMI 27.8
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
== END 2020-06-23 20:26 | disposition home or self-care (01) ==
LOC: JERFT 17:22
DX: H11.31 Conjunctival hemorrhage, right eye (principal); S06.0X0A Concussion without loss of consciousness, initial encounter
CPT/HCPCS: 70450-TC; 70486-TC; 99284-25

== ENCOUNTER 2020-07-07 21:43 | Inpatient (IN) | payer OTHER ==
[2020-07-07 22:18] VITALS: BMI 26.4
[2020-07-07] MEDS ORDERED: METHOCARBAMOL 500 MG TABLET PO PRN (23:03)
[2020-07-07] MEDS ORDERED: ONDANSETRON *ODT* 4 MG TABLET SL PRN (23:03)
[2020-07-07] MEDS ORDERED: chlordiazePOXIDE HCL 25 MG CAPSULE PO PRN (23:03)
[2020-07-07] MEDS ORDERED: DICYCLOMINE HCL 10 MG CAPSULE PO PRN (23:03)
[2020-07-07] MEDS ORDERED: IBUPROFEN 400 MG TABLET (FP) PO PRN (23:03)
[2020-07-07] MEDS ORDERED: guaiFENesin 200 MG/10 ML 10 ML UNIT-DOSE CUPS PO PRN (23:03)
[2020-07-07] MEDS ORDERED: MAGNESIUM HYDROX 2400MG/30ML ORAL SUSPENSION 30 ML CUP PO PRN (23:03)
[2020-07-07] MEDS ORDERED: MAG HYDROX/AL HYDROX/SIMETH 30 ML UNIT-DOSE CUP PO PRN (23:03)
[2020-07-07] MEDS ORDERED: hydrOXYzine PAMOATE 25 MG CAPSULE (FP) PO PRN (23:03)
[2020-07-07] MEDS ORDERED: MENTHOL/PHENOL 1 EACH UD MM PRN (23:03)
[2020-07-07] MEDS ORDERED: BISMUTH SUBSALICYLATE 524 MG/30 ML UD PO PRN (23:03)
[2020-07-07] MEDS ORDERED: MAGNESIUM CITRATE 300 ML BOTTLE PO PRN (23:03)
[2020-07-07] MEDS ORDERED: ACETAMINOPHEN 325 MG TABLET (FP) PO PRN ×2 (23:03)
[2020-07-07] MEDS ORDERED: P-EPHED 60MG/TRIPROLIDI 2.5MG TABLET PO PRN (23:03)
[2020-07-08] MEDS: chlordiazePOXIDE HCL 25 MG CAPSULE PO SCH ×5 (00:07→22:26)
[2020-07-08 10:09] LABS: HEMATOCRIT 43.8 % (35.4-49); HEMOGLOBIN 14.1 GM/dL (11.7-16.9); MCH 28.3 pg (25.7-33.7); MCHC 32.2 g/dl (32.0-35.9); MEAN CELL VOLUME 88.1 fl (80-96); MEAN PLT VOLUME 7.5 fl (7.5-11.1); PLATELET COUNT 288 K/MM3 (134-434); POTASSIUM 4.4 mmol/L (3.5-5.1); RBC 4.96 M/mm3 (4.00-5.60); RDW 15.6 % (11.9-15.9); WHITE BLOOD COUNT 11.2 K/mm3 (4.0-10.0)
[2020-07-08 10:11] LABS: CALCIUM 9.1 mg/dL (8.5-10.1)
[2020-07-08 10:12] LABS: ALBUMIN 3.4 g/dl (3.4-5.0); BLOOD UREA NITROGEN 12.8 mg/dL (7-18)
[2020-07-08 10:16] LABS: BILIRUBIN,TOTAL 0.5 mg/dL (0.2-1); TOT PROT 6.3 g/dl (6.4-8.2)
[2020-07-08] MEDS: CEPHALEXIN MONOHYDRATE 500 MG CAPSULE (UD) PO SCH ×3 (10:24→22:27)
[2020-07-08] MEDS: PRENATAL VITAMINS W/ FOLIC ACID TABLET (FP) PO SCH (10:24)
[2020-07-08] MEDS: NICOTINE POLACRILEX 2 MG GUM BUC PRN (10:25)
[2020-07-08] MEDS: NICOTINE 21 MG/24 HOURS TOPICAL PATCH TD SCH (10:25)
[2020-07-08] MEDS: MIRTAZAPINE 15 MG TABLET (FP) PO SCH (22:26)
[2020-07-08] MEDS: THIAMINE HCL 100 MG TABLET (FP) PO SCH (22:27)
[2020-07-08] MEDS: MELATONIN 5 MG TABLETS PO SCH (22:27)
[2020-07-09] MEDS: CEPHALEXIN MONOHYDRATE 500 MG CAPSULE (UD) PO SCH ×3 (05:44→22:19)
[2020-07-09] MEDS: chlordiazePOXIDE HCL 25 MG CAPSULE PO SCH ×4 (05:44→22:20)
[2020-07-09] MEDS: PRENATAL VITAMINS W/ FOLIC ACID TABLET (FP) PO SCH (10:16)
[2020-07-09] MEDS: NICOTINE 21 MG/24 HOURS TOPICAL PATCH TD SCH (10:18)
[2020-07-09] MEDS: NICOTINE POLACRILEX 2 MG GUM BUC PRN (10:18)
[2020-07-09] MEDS ORDERED: PENICILLIN G BENZATHINE 2,400,000 UNIT/4 ML PFS IM ONE (10:23)
[2020-07-09] MEDS: THIAMINE HCL 100 MG TABLET (FP) PO SCH (22:19)
[2020-07-09] MEDS: MIRTAZAPINE 15 MG TABLET (FP) PO SCH (22:19)
[2020-07-09] MEDS: MELATONIN 5 MG TABLETS PO SCH (22:20)
[2020-07-10] MEDS ORDERED: chlordiazePOXIDE HCL 10 MG CAPSULE PO PRN
[2020-07-10] MEDS: CEPHALEXIN MONOHYDRATE 500 MG CAPSULE (UD) PO SCH ×3 (06:48→22:15)
[2020-07-10] MEDS: chlordiazePOXIDE HCL 10 MG CAPSULE PO SCH ×4 (06:48→22:15)
[2020-07-10] MEDS: PRENATAL VITAMINS W/ FOLIC ACID TABLET (FP) PO SCH (10:32)
[2020-07-10] MEDS: NICOTINE 21 MG/24 HOURS TOPICAL PATCH TD SCH (10:33)
[2020-07-10] MEDS: MELATONIN 5 MG TABLETS PO SCH (22:15)
[2020-07-10] MEDS: THIAMINE HCL 100 MG TABLET (FP) PO SCH (22:15)
[2020-07-10] MEDS: MIRTAZAPINE 15 MG TABLET (FP) PO SCH (22:15)
[2020-07-11] MEDS: chlordiazePOXIDE HCL 10 MG CAPSULE PO SCH ×2 (06:11→17:05)
[2020-07-11] MEDS: CEPHALEXIN MONOHYDRATE 500 MG CAPSULE (UD) PO SCH ×3 (06:11→21:06)
[2020-07-11] MEDS: PRENATAL VITAMINS W/ FOLIC ACID TABLET (FP) PO SCH (10:15)
[2020-07-11] MEDS: NICOTINE 21 MG/24 HOURS TOPICAL PATCH TD SCH (10:16)
[2020-07-11] MEDS: THIAMINE HCL 100 MG TABLET (FP) PO SCH (21:06)
[2020-07-11] MEDS: MIRTAZAPINE 15 MG TABLET (FP) PO SCH (21:06)
[2020-07-11] MEDS: MELATONIN 5 MG TABLETS PO SCH (21:06)
[2020-07-12] MEDS ORDERED: chlordiazePOXIDE HCL 10 MG CAPSULE PO ONE (05:00)
[2020-07-12] MEDS: CEPHALEXIN MONOHYDRATE 500 MG CAPSULE (UD) PO SCH (05:54)
[2020-07-12 08:50] VITALS: BP 124/68; PULSE 92; TEMP 97.7
== END 2020-07-12 09:49 | disposition other institution (70) | DRG 775 ==
LOC: YASAS 21:43 → Y3N 22:58
PROVIDERS: ADMIT Allergy & Immunology; ATTEND Allergy & Immunology
PROC: HZ2ZZZZ Detoxification Services for Substance Abuse Treatment (ICD-10-PCS; principal; 2020-07-07)
DX: F10.230 Alcohol dependence with withdrawal, uncomplicated (principal); F12.20 Cannabis dependence, uncomplicated; F19.282 Other psychoactive substance dependence with psychoactive substance-induced sleep disorder; F19.24 Other psychoactive substance dependence with psychoactive substance-induced mood disorder; L03.115 Cellulitis of right lower limb; L02.416 Cutaneous abscess of left lower limb; J45.909 Unspecified asthma, uncomplicated; K21.9 Gastro-esophageal reflux disease without esophagitis; H11.31 Conjunctival hemorrhage, right eye; Z99.89 Dependence on other enabling machines and devices; Z59.0 Homelessness
CPT/HCPCS: 36415; 80053; 85027; 86593; 86780; 93005; 93010; C9803; U0003

== ENCOUNTER 2023-01-06 09:36 | Emergency (ER) | payer OTHER ==
[2023-01-06 09:53] VITALS: BP 103/68; PULSE 98; RESP 17; TEMP 98.3; BMI 26.4
[2023-01-06] MEDS ORDERED: ACETAMINOPHEN 500 MG TABLET (FP) PO ONE (10:28)
[2023-01-06] MEDS ORDERED: ACETAMINOPHEN 325 MG TABLET (FP) ONE (10:35)
== END 2023-01-06 10:54 | disposition home or self-care (01) ==
LOC: JER 09:36
DX: S42.301A Unspecified fracture of shaft of humerus, right arm, initial encounter for closed fracture (principal); Y09 Assault by unspecified means
CPT/HCPCS: 99283-25